=== PATIENT | male | born 1945 | race Caucasian/White ===

== ENCOUNTER 2023-11-07 10:06 | Emergency (ER) | payer MEDICARE ==
[~2023-11-07] VITALS: Ht 190.5 cm; Wt 74.8 kg
[2023-11-07] MEDS: IV NS 0.9% 1,000 ML BAG IV ONE (10:34)
[2023-11-07 10:39] LABS: BASOPHILS # (AUTO) 0.1 K/uL (0.0-0.2); BASOPHILS % (AUTO) 0.9 % (0.0-2.0); EOSINOPHILS # (AUTO) 0.4 K/uL (0.0-0.7); EOSINOPHILS % (AUTO) 4.7 % (0.0-6.0); HEMATOCRIT 36 % (39-51); HEMOGLOBIN 11.9 g/dL (13.5-17.5); LYMPHOCYTES # (AUTO) 1.2 K/uL (0.8-4.8); LYMPHOCYTES % (AUTO) 12.5 % (20.0-44.0); MEAN CORPUSCULAR HEMOGLOBIN 30 PG (26.0-33.0); MEAN CORPUSCULAR HGB CONC 33 g/dl (31.0-36.0); MEAN CORPUSCULAR VOLUME 90 fL (80-96); MONOCYTES # (AUTO) 0.6 K/uL (0.1-1.30); MONOCYTES % (AUTO) 6.2 % (2.0-12.0); NEUTROPHILS % (AUTO) 75.7 % (43.0-81.0); PLATELET COUNT (AUTO) 268 K/uL (150-450); RED BLOOD CELL COUNT(AUTO) 3.95 MIL/uL (4.5-6.0); RED CELL DISTRIBUTION WIDTH 14.4 % (11.5-15.0); WHITE BLOOD COUNT (AUTO) 9.3 K/uL (4.3-11.0)
[2023-11-07 10:46] LABS: CALCIUM, SERUM 9.3 mg/dL (8.5-10.1); CARBON DIOXIDE 32 mmol/L (21-32); CHLORIDE 102 mmol/L (98-107); CREATININE 1.4 mg/dL (0.6-1.3); GLUCOSE 168 mg/dL (74-106); POTASSIUM 3.7 mmol/L (3.5-5.1); SODIUM SERUM 135 mmol/L (136-145); UREA NITROGEN, BLOOD 21 mg/dL (7-18)
[2023-11-07 10:52] LABS: ALANINE AMINOTRANSFERASE 18 U/L (12-78); ALBUMIN 2.6 g/dL (3.4-5.0); ALKALINE PHOSPHATASE 102 U/L (46-116); ASPARTATE AMINOTRANSFERASE 18 U/L (15-37); BILIRUBIN,DIRECT 0.1 mg/dL (0.0-0.2); BILIRUBIN,TOTAL 0.3 mg/dL (0.2-1.0); TOTAL PROTEIN, SERUM 6.9 g/dL (6.4-8.2)
[2023-11-07 13:58] VITALS: BP 118/77; TEMP 97.9; O2SAT 100
[2023-11-07] MEDS ORDERED: ZOLM5TAB PO (15:45)
[2023-11-07] MEDS ORDERED: ROSU10TA2 PO (15:45)
[2023-11-07] MEDS ORDERED: ESCI5TAB PO (15:45)
== END 2023-11-07 13:59 | disposition home or self-care (01) ==
LOC: ER 10:35
DX: R55 Syncope and collapse (principal); Z85.118 Personal history of other malignant neoplasm of bronchus and lung
CPT/HCPCS: 99285; 96360; 71045; 93005 ×3; 85025; 80048; 80076; 36415; 84484 ×2; J7030

== ENCOUNTER 2023-11-07 14:33 | Inpatient (IN) | payer MEDICARE ==
[~2023-11-07] VITALS: Ht 185.4 cm; Wt 76.2 kg
[2023-11-07] MEDS ORDERED: ROSU10TA2 PO (15:45)
[2023-11-07] MEDS ORDERED: ZOLM5TAB PO (15:45)
[2023-11-07] MEDS: IV NS 0.9% 1,000 ML BAG IV ONE (15:45)
[2023-11-07] MEDS ORDERED: ESCI5TAB PO (15:45)
[2023-11-07 22:00] VITALS: BP 101/66; TEMP 97.9; O2SAT 96
[2023-11-08] VITALS: BP 123/59; TEMP 97.7; O2SAT 94
[2023-11-08] MEDS ORDERED: MAG HYDROX/AL HYDROX/SIMETH 30 ML UDC PO PRN
[2023-11-08] MEDS ORDERED: Z GUARD REMEDY 4 OZ OINT TP PRN
[2023-11-08] MEDS ORDERED: MAGNESIUM HYDROXIDE 30 ML UDC PO PRN
[2023-11-08] MEDS ORDERED: ACETAMINOPHEN 325 MG TABLET PO PRN
[2023-11-08] MEDS ORDERED: ONDANSETRON HCL/PF 4 MG/2 ML VIAL IVP PRN
[2023-11-08] MEDS: IV NS 0.9% 1,000 ML IV SCH (00:46)
[2023-11-08 01:00] VITALS: BP_SYST 106; BP_SYST 110; BP_SYST 132; BP_DIAS 69; BP_DIAS 78
[2023-11-08 04:00] VITALS: BP 120/71; TEMP 97.5; O2SAT 95
[2023-11-08 06:37] LABS: BASOPHILS # (AUTO) 0.1 K/uL (0.0-0.2); BASOPHILS % (AUTO) 1.1 % (0.0-2.0); EOSINOPHILS # (AUTO) 0.4 K/uL (0.0-0.7); EOSINOPHILS % (AUTO) 6.8 % (0.0-6.0); HEMATOCRIT 33 % (39-51); HEMOGLOBIN 11.2 g/dL (13.5-17.5); LYMPHOCYTES # (AUTO) 1.4 K/uL (0.8-4.8); LYMPHOCYTES % (AUTO) 25.9 % (20.0-44.0); MEAN CORPUSCULAR HEMOGLOBIN 31 PG (26.0-33.0); MEAN CORPUSCULAR HGB CONC 34 g/dl (31.0-36.0); MEAN CORPUSCULAR VOLUME 91 fL (80-96); MONOCYTES # (AUTO) 0.5 K/uL (0.1-1.30); MONOCYTES % (AUTO) 9.6 % (2.0-12.0); NEUTROPHILS % (AUTO) 56.6 % (43.0-81.0); PLATELET COUNT (AUTO) 243 K/uL (150-450); RED BLOOD CELL COUNT(AUTO) 3.66 MIL/uL (4.5-6.0); RED CELL DISTRIBUTION WIDTH 14.2 % (11.5-15.0); WHITE BLOOD COUNT (AUTO) 5.3 K/uL (4.3-11.0)
[2023-11-08 07:30] LABS: CALCIUM, SERUM 8.5 mg/dL (8.5-10.1); CARBON DIOXIDE 30 mmol/L (21-32); CHLORIDE 105 mmol/L (98-107); CREATININE 0.9 mg/dL (0.6-1.3); GLUCOSE 95 mg/dL (74-106); MAGNESIUM 2.2 mg/dL (1.8-2.4); PHOSPHORUS 2.6 mg/dL (2.5-4.9); POTASSIUM 3.6 mmol/L (3.5-5.1); SODIUM SERUM 141 mmol/L (136-145); UREA NITROGEN, BLOOD 12 mg/dL (7-18)
[2023-11-08 08:00] VITALS: BP_SYST 114; BP_SYST 131; BP_DIAS 55; BP_DIAS 72; BP_DIAS 74; TEMP 97.7; O2SAT 95
[2023-11-08] MEDS: ENOXAPARIN SODIUM 40 MG/0.4 ML DISP.SYRIN SQ SCH (08:45)
[2023-11-08] MEDS ORDERED: ZOLMITRIPTAN 5 MG PO SCH (09:00)
[2023-11-08 12:00] VITALS: BP 120/71; TEMP 97.9; O2SAT 96
== END 2023-11-08 16:54 | disposition home or self-care (01) | DRG 640 ==
LOC: ER 14:43 → TELE1 17:10
PROVIDERS: ATTEND Nurse Practitioner Acute Care
DX: E86.0 Dehydration (principal); N17.0 Acute kidney failure with tubular necrosis; E44.0 Moderate protein-calorie malnutrition; E78.5 Hyperlipidemia, unspecified; D64.9 Anemia, unspecified; E88.09 Other disorders of plasma-protein metabolism, not elsewhere classified; Z85.118 Personal history of other malignant neoplasm of bronchus and lung; D63.8 Anemia in other chronic diseases classified elsewhere; Z68.22 Body mass index [BMI] 22.0-22.9, adult; R42 Dizziness and giddiness; F19.11 Other psychoactive substance abuse, in remission; F10.21 Alcohol dependence, in remission; I71.9 Aortic aneurysm of unspecified site, without rupture; Z79.60 Long term (current) use of unspecified immunomodulators and immunosuppressants; I95.1 Orthostatic hypotension; C09.9 Malignant neoplasm of tonsil, unspecified; E87.1 Hypo-osmolality and hyponatremia
CPT/HCPCS: 36415; 71045-TC; 80048-TC; 80076-TC; 83735-TC; 84100-TC; 84443-TC; 84484-TC; 85025-TC; 93307-TC; 93880-TC; 97110-TC; 97112-TC; 97116-TC; A4223; G0378; J1650; J7030